=== PATIENT | female | born 1995 | race Caucasian/White ===

== ENCOUNTER 2017-02-03 20:11 | Emergency (ER) | payer BC ==
[2017-02-03] MEDS ORDERED: NS 0.9% 1000 ML* 2,000 ML IV ONE (20:19)
[2017-02-03] MEDS ORDERED: Morphine INJ* 4 MG/ML 1 ML SYRINGE IV ONE (20:19)
[2017-02-03] MEDS ORDERED: Ondansetron INJ* 2 MG/ML VIAL IV ONE (20:19)
[2017-02-03] MEDS ORDERED: LORazepam INJ* 2 MG/ML 1 ML VIAL IV PUSH ONE (20:24)
[2017-02-03 20:45] LABS: Hematocrit 42 % (35-47); Hemoglobin 14.6 g/dl (12.0-16.0); Mean Corpuscular HGB Conc 35 g/dl (31-36); Mean Corpuscular Hemoglobin 30 pg (27-31); Mean Corpuscular Volume 85 fL (80-97); Mean Platelet Volume 7 um3 (7.4-10.4); Red Blood Count 4.88 10^6/ul (4.0-5.4); Red Cell Distribution Width 12 % (10.5-15); White Blood Count 14.6 10^3/ul (3.5-10.8)
[2017-02-03 20:46] LABS: Add Diff/Slide Review? Slide Review Added; Comments Flag Yes
[2017-02-03 20:58] LABS: ALT 33 U/L (7-52); Albumin 4.8 g/dL (3.2-5.2); Alkaline Phosphatase 71 U/L (34-104); Amylase 23 U/L (29-103); BUN/Creatinine Ratio 18.1 (8-20); Blood Urea Nitrogen 17 mg/dL (6-24); CO2 Carbon Dioxide 23 mmol/L (22-32); Chloride 103 mmol/L (101-111); Creatine Kinase 227 U/L (10-223); EGFR African American 98.7 (>60); EGFR Non-African American 76.7 (>60); Globulin 3.6 g/dL (2-4); Glucose 111 mg/dL (70-100); Lipase 25 U/L (11.0-82.0); Sodium 135 mmol/L (133-145); Total Protein 8.4 g/dL (6.4-8.9)
[2017-02-03 21:08] LABS: AST 26 U/L (13-39); Anion Gap 9 mmol/L (2-11); Potassium 3.4 mmol/L (3.5-5.0)
[2017-02-03] MEDS ORDERED: Iohexol 300* (CONTRAST) 10 ML SDV IV ONE (21:18)
--- NOTE | 2017-02-03 21:25 | RAD ---
INDICATION: Short of breath. Pneumonia. Pneumothorax. COMPARISON: None TECHNIQUE: PA and lateral dual-energy views were obtained. FINDINGS: Bones/Soft Tissues: There are no acute bony findings. Cardiomediastinal: The cardiomediastinal silhouette is normal. Lungs: There are no infiltrates. Pleura: There are no pleural effusions. Other: None IMPRESSION: NORMAL CHEST.
[2017-02-04 00:19] LABS: Urine Bacteria 1+ (Absent); Urine Bilirubin Negative (Negative); Urine Glucose Negative (Negative); Urine Nitrite Negative (Negative)
[2017-02-04] MEDS ORDERED: HYDROcodone/ACETAMIN 5-325 MG* 1 TAB PO ONE (00:34)
[2017-02-04 01:06] VITALS: BP 112/60
--- NOTE | 2017-02-04 05:19 | ED ---
Heather George Rebecca, scribed for Javier Jorge MD on 02/03/17 at 2026 . Shortness of Breath - HPI Summary HPI Summary: Pt is a 21 y/o F who presents to ED c/o SOB. SOB is characterized as dyspnea at rest and began immediately [employer], per family. Pt repeatedly states "I cannot breathe." Sx aggravated and alleviated by nothing. Additionally c/o severe LUQ pain that has been present since this morning, per family. Denies vaginal bleeding, blood in stool and throat pain. Pt recently returned from a camping trip during which she did not sustain any known animal bites. No recent trauma. NKDA. - History of Current Complaint Chief Complaint: EDShortnessOfBreath Hx Obtained From: Patient, Family/Emergency Planning And Response Manager Onset/Duration: Still Present Dyspnea At: Rest Aggrevating Factors: Nothing Alleviating Factors: Nothing - Allergy/Home Medications Allergies/Adverse Reactions: Allergies Allergy/AdvReac Type Severity Reaction Status Date / Time No Known Allergies Allergy Verified 02/03/17 20:23 PMH/Surg Hx/FS Hx/Imm Hx Endocrine/Hematology History: Denies: Hx Diabetes, Hx Thyroid Disease Cardiovascular History: Denies: Hx Hypertension, Hx Pacemaker/ICD, Hx Peripheral Vascular Disease Respiratory History: Denies: Hx Asthma, Hx Chronic Obstructive Pulmonary Disease (COPD) GI History: Denies: Hx Ulcer Musculoskeletal History: Denies: Hx Arthritis, Hx Osteoporosis Sensory History: Denies: Hx Cataracts, Hx Contacts or Glasses, Hx Glaucoma, Hx Hearing Aid Opthamlomology History: Denies: Hx Cataracts, Hx Contacts or Glasses, Hx Glaucoma Neurological History: Denies: Hx Headaches, Hx Seizures, Hx Transient Ischemic Attacks (TIA) Psychiatric History: Denies: Hx Anxiety, Hx Depression, Hx Panic Disorder Infectious Disease History: Denies: Hx Clostridium Difficile, Hx Hepatitis, Hx Human Immunodeficiency Virus (HIV), Traveled Outside the [place] in Last 30 Days - Family History Known Family History: Positive: Hypertension Negative: Diabetes - Social History Alcohol Use: None Substance Use Type: Reports: None Smoking Status (MU): Never Smoked Tobacco Review of Systems Positive: Shortness Of Breath - dyspnea at rest Positive: Abdominal Pain - LUQ pain Positive: other - Negative blood in stool and vaginal bleeding All Other Systems Reviewed And Are Negative: Yes Physical Exam - Summary Physical Exam Summary: The patient is well-nourished in moderate distress. The patient is hyperventilating. The skin is diaphoretic and warm, skin color reflects adequate perfusion. HEENT: The head is normocephalic and atraumatic. The pupils are equal and reactive. The conjunctivae are clear and without drainage. Nares are patent and without drainage. Mouth reveals moist mucous membranes and the throat is without erythema and exudate. The external ears are intact. The ear canals are patent and without drainage. The tympanic membranes are intact. Neck is supple with full range of motion and non-tender. There are no carotid bruits. There is no stridor. Respiratory: Chest is non-tender. Lungs are clear to auscultation and breath sounds are symmetrical and equal. Cardiovascular: Hear is regular rate and rhythm. There is no murmur or rub auscultated. There is no peripheral edema and pulses are symmetrical and equal. Abdomen: The abdomen is soft. There is LUQ and left mid-quadrant tenderness and tenderness with flexion of the leg and percussion. There are normal bowel sounds heard in all four quadrants and there is no organomegaly palpated. Musculoskeletal: There is no back pain noted. Extremities are non-tender with full range of motion. There is good capillary refill. There is no peripheral edema or calf tenderness elicited. Neurological: Patient is alert and oriented to person, place and time. The patient has symmetrical motor strength in all four extremities. Psychiatric: The patient is very anxious and in significant pain. Triage Information Reviewed: Yes Vital Signs On Initial Exam: Initial Vitals Temp Pulse Resp BP Pulse Ox 99.2 F 102 18 108/71 100 02/03/17 20:18 02/03/17 20:18 02/03/17 20:18 02/03/17 20:18 02/03/17 20:18 Vital Signs Reviewed: Yes Diagnostics - Vital Signs Vital Signs Temp Pulse Resp BP Pulse Ox 02/03/17 20:18 99.2 F 102 18 108/71 100 - Laboratory Lab Results: Lab Results 02/03/17 02/03/17 02/03/17 Range/Units 20:15 20:15 20:15 WBC 14.6 H (3.5-10.8) 10^3/ul RBC 4.88 (4.0-5.4) 10^6/ul Hgb 14.6 (12.0-16.0) g/dl Hct 42 (35-47) % MCV 85 (80-97) fL MCH 30 (27-31) pg MCHC 35 (31-36) g/dl RDW 12 (10.5-15) % Plt Count 447 (150-450) 10^3/ul MPV 7 L (7.4-10.4) um3 Neut % (Auto) 45.7 (38-83) % Lymph % (Auto) 44.6 (25-47) % [place] % (Auto) 7.6 (1-9) % Eos % (Auto) 1.3 (0-6) % Baso % (Auto) 0.8 (0-2) % Absolute Neuts (auto) 6.7 (1.5-7.7) 10^3/ul Absolute Lymphs (auto) 6.5 H (1.0-4.8) 10^3/ul Absolute Monos (auto) 1.1 H (0-0.8) 10^3/ul Absolute Eos (auto) 0.2 (0-0.6) 10^3/ul Absolute Basos (auto) 0.1 (0-0.2) 10^3/ul Absolute Nucleated RBC 0.02 10^3/ul Nucleated RBC % 0.2 INR (Anticoag Therapy) (0.89-1.11) D-Dimer, Quantitative (Less Than 230) ng/mL Sodium 135 (133-145) mmol/L Potassium 3.4 L (3.5-5.0) mmol/L Chloride 103 (101-111) mmol/L Carbon Dioxide 23 (22-32) mmol/L Anion Gap 9 (2-11) mmol/L BUN 17 (6-24) mg/dL Creatinine 0.94 (0.51-0.95) mg/dL Est GFR ( Amer) 98.7 (>60) Est GFR (Non-Af Amer) 76.7 (>60) BUN/Creatinine Ratio 18.1 (8-20) Glucose 111 H (70-100) mg/dL Lactic Acid 2.9 H* (0.5-2.0) mmol/L Calcium 10.0 (8.6-10.3) mg/dL Total Bilirubin 0.40 (0.2-1.0) mg/dL AST 26 (13-39) U/L ALT 33 (7-52) U/L Alkaline Phosphatase 71 (34-104) U/L Total Creatine Kinase 227 H (10-223) U/L Troponin I 0.00 (<0.04) ng/mL C-Reactive Protein 3.20 (< 5.00) mg/L Total Protein 8.4 (6.4-8.9) g/dL Albumin 4.8 (3.2-5.2) g/dL Globulin 3.6 (2-4) g/dL Albumin/Globulin Ratio 1.3 (1-3) Amylase 23 L (29-103) U/L Lipase 25 (11.0-82.0) U/L Beta HCG, Quant < 0.60 mIU/mL Urine Color Urine Appearance Urine pH (5-9) Ur Specific [place] (1.010-1.030) Urine Protein (Negative) Urine Ketones (Negative) Urine Blood (Negative) Urine Nitrate (Negative) Urine Bilirubin (Negative) Urine Urobilinogen (Negative) Ur Leukocyte Esterase (Negative) Urine WBC (Auto) (Absent) Urine RBC (Auto) (Absent) Ur Squamous Epith Cells (Absent) Urine Bacteria (Absent) Urine Glucose (Negative) 02/03/17 02/03/17 Range/Units 20:15 23:51 WBC (3.5-10.8) 10^3/ul RBC (4.0-5.4) 10^6/ul Hgb (12.0-16.0) g/dl Hct (35-47) % MCV (80-97) fL MCH (27-31) pg MCHC (31-36) g/dl RDW (10.5-15) % Plt Count (150-450) 10^3/ul MPV (7.4-10.4) um3 Neut % (Auto) (38-83) % Lymph % (Auto) (25-47) % [place] % (Auto) (1-9) % Eos % (Auto) (0-6) % Baso % (Auto) (0-2) % Absolute Neuts (auto) (1.5-7.7) 10^3/ul Absolute Lymphs (auto) (1.0-4.8) 10^3/ul Absolute Monos (auto) (0-0.8) 10^3/ul Absolute Eos (auto) (0-0.6) 10^3/ul Absolute Basos (auto) (0-0.2) 10^3/ul Absolute Nucleated RBC 10^3/ul Nucleated RBC % INR (Anticoag Therapy) 0.87 L (0.89-1.11) D-Dimer, Quantitative < 200 (Less Than 230) ng/mL Sodium (133-145) mmol/L Potassium (3.5-5.0) mmol/L Chloride (101-111) mmol/L Carbon Dioxide (22-32) mmol/L Anion Gap (2-11) mmol/L BUN (6-24) mg/dL Creatinine (0.51-0.95) mg/dL Est GFR ( Amer) (>60) Est GFR (Non-Af Amer) (>60) BUN/Creatinine Ratio (8-20) Glucose (70-100) mg/dL Lactic Acid (0.5-2.0) mmol/L Calcium (8.6-10.3) mg/dL Total Bilirubin (0.2-1.0) mg/dL AST (13-39) U/L ALT (7-52) U/L Alkaline Phosphatase (34-104) U/L Total Creatine Kinase (10-223) U/L Troponin I (<0.04) ng/mL C-Reactive Protein (< 5.00) mg/L Total Protein (6.4-8.9) g/dL Albumin (3.2-5.2) g/dL Globulin (2-4) g/dL Albumin/Globulin Ratio (1-3) Amylase (29-103) U/L Lipase (11.0-82.0) U/L Beta HCG, Quant mIU/mL Urine Color Yellow Urine Appearance Cloudy Urine pH 6.0 (5-9) Ur Specific [place] 1.038 H (1.010-1.030) Urine Protein Negative (Negative) Urine Ketones Negative (Negative) Urine Blood Negative (Negative) Urine Nitrate Negative (Negative) Urine Bilirubin Negative (Negative) Urine Urobilinogen Negative (Negative) Ur Leukocyte Esterase Trace H (Negative) Urine WBC (Auto) Trace(0-5/hpf) (Absent) Urine RBC (Auto) 1+(3-5/hpf) H (Absent) Ur Squamous Epith Cells Present H (Absent) Urine Bacteria 1+ H (Absent) Urine Glucose Negative (Negative) Result Diagrams: 02/03/17 20:15 02/03/17 20:15 Lab Statement: Any lab studies that have been ordered have been reviewed, and results considered in the medical decision making process. - Radiology CXR Xray Interpretation: No Acute Changes - NORMAL CHEST. Radiology Interpretation Completed By: Radiologist - CT CT Abd/Pel CT Interpretation: No Acute Changes - No bowel obstruction, colitis, free fluid or free air. normal appendix. Unremarkable stomach, spleen, pancreas, kidneys and gallbladder. CT Interpretation Completed By: Radiologist - EKG 2039 Cardiac Rate: NL - 79 bpm EKG Rhythm: Sinus Rhythm ST Segment: Normal EKG Interpretation: Normal axis, no ST elevation, no ST changes Re-Evaluation - Re-Evaluation First Eval Re-Evaluation Time: 23:54 Comment: Pt continues to experience L-sided abdominal pain. The family is upset that her UA is not back yet. Second Eval Re-Evaluation Time: 00:29 Change: Improved Comment: Pt is feeling slightly improved. Discussed UA results and D/C plan. Course/Dx - Course Assessment/Plan: Pt is a 21 y/o F who presents to ED c/o SOB. SOB is characterized as dyspnea at rest and began immediately [employer], per family. Pt repeatedly states "I cannot breathe." Sx aggravated and alleviated by nothing. Additionally c/o severe LUQ pain that has been present since this morning, per family. Denies vaginal bleeding, blood in stool and throat pain. Pt recently returned from a camping trip during which she did not sustain any known animal bites. No recent trauma. NKDA. EKG, CXR and CT Abd/Pel reveal no acute findings. Lactic acid of 2.9, WBC of 14.6 H, INR of 0.87, D-Dimer <200, amylase of 23 L. In the ED course, pt was administered fluids, ativan, morphine and zofran which improved sx. She will be D/C to home with Dx of abdominal pain, SOB and dehydration, Rx for [place] 5-325 and a followup with her PCP. She and her family understand and agree. Reviewed radiological findings and agree with them. - Diagnoses Differential Diagnosis/HQI/PQRI: Positive: SD, Pneumonia, Pneumothorax, Pulmonary Embolism, Other - , anxiety, pancreatitis, uti, renal colic, dehydration Provider Diagnoses: Abdominal pain, Shortness of breath, Dehydration Discharge - Discharge Plan Condition: Stable Disposition: HOME Prescriptions: HYDROcodone/ACETAMIN 5-325 MG* [[place] 5-325 TAB*] 1 tab PO Q6H PRN #16 tab MDD 4 PRN Reason: Pain Patient Education Materials: Acute Abdominal Pain (ED), Dyspnea (ED), Dehydration (ED) Referrals: Madonna Cantu ROLL RECLAIMER [Primary Care Provider] - 3 Days The documentation as recorded by the Heather wiggins Rebecca accurately reflects the service I personally performed and the decisions made by me, Javier Jorge MD.
--- NOTE | 2017-02-04 07:43 | RAD ---
CLINICAL HISTORY: Left upper quadrant pain, perforated viscus, pancreatitis, COMPARISON: None TECHNIQUE: Multiple contiguous axial CT scans were obtained of the abdomen and pelvis after the administration of intravenous contrast. Coronal and sagittal multiplanar reformations are submitted for review. Oral contrast was administered. Delayed images were obtained through the abdomen and pelvis. FINDINGS: LUNG BASES: The lung bases are clear. LIVER: The liver is diffusely low in attenuation compared to the spleen. There are no focal hepatic parenchymal masses. The liver is at the upper limits of normal in size. BILE DUCTS: There is no intrahepatic or extrahepatic biliary dilatation. GALLBLADDER: The gallbladder is normal, without pericholecystic inflammatory change. PANCREAS: The pancreas is normal, without mass or ductal dilatation. SPLEEN: Normal in size and appearance. UPPER GI TRACT: Evaluation of the gastrointestinal tract is limited by incomplete gastric distention. The upper GI tract is unremarkable. SMALL BOWEL AND MESENTERY: The small bowel is normal in contour, course, and caliber. There is no obstruction or dilatation. COLON: The colon is normal in contour, course, caliber. There is no pericolonic inflammatory change. There is a tubular, vermiform, hollow viscus that is blind ending, and originates from the cecum, consistent with a normal appendix. There is no periappendiceal inflammatory change. This is best seen on axial images 53 through 57. ADRENALS: Normal bilaterally. KIDNEYS: The kidneys are normal in shape, size, contour, and axis. There is no hydronephrosis or nephrolithiasis. BLADDER: The bladder is smooth in contour. PELVIC ORGANS: The uterus and adnexa are grossly normal for technique. AORTA: The aorta is normal. IVC: Unremarkable LYMPH NODES: There is no lymphadenopathy by size criteria. ABDOMINAL WALL: There is no evidence for abdominal wall hernia. BONES AND SOFT TISSUES: Unremarkable OTHER: None IMPRESSION: NO ACUTE CT PATHOLOGY OF THE VISUALIZED ABDOMEN OR PELVIS.
== END 2017-02-04 01:20 | disposition home or self-care (01) ==
LOC: ED 20:11
DX: R06.02 Shortness of breath (principal); R10.12 Left upper quadrant pain; E86.0 Dehydration
CPT/HCPCS: 36415; 71020; 74177; 80053; 81003; 81015; 82150; 82550; 83605; 83690; 84484; 84702; 85025; 85379; 85610; 86140; 86618; 87077; 87086; 87186; 93005; 99283; J2060; J2270; J2405; Q9967